=== PATIENT | male | born 1965 | race Caucasian/White ===

== ENCOUNTER 2021-12-07 10:43 | Emergency (ER) | payer SELFPAY ==
[~2021-12-07] VITALS: Ht 177.8 cm; Wt 91.0 kg
[~2021-12-07 10:43] MED LIST: ACHD5005 PO; LEVO750T9 PO
[2021-12-07 10:52] VITALS: BP 137/89
--- NOTE | 2021-12-07 11:16 | ED General ---
General Chief Complaint: Bite-Animal/Human/Insect Stated Complaint: R FOOT SPIDER BITE Nursing Triage Note: The patient states that this spider bite occured a couple days ago and that he could not get comfortable enough last night to sleep as the bite was bothering him. The patient says he has never had a spider bite and did not see the spider but believes it was a spider because he felt something move in his boot when the pain occured initially. Source of Information: Patient Exam Limitations: No Limitations History of Present Illness Date Seen by Provider: December 07, 2021 Time Seen by Provider: 10:58 Initial Comments This is a well-appearing 55-year-old male who presented to the ER with complaints of pain in his right foot. States that this started a couple days ago and thought he may have been bit by spider or another insect. He did not see a spider or insect however he thought he saw a small puncture area on the sole of his foot just proximal to the first great toe. Describes as "hurt" pain Is intermittent and present only when he walks or put pressure on his foot. Pain with ambulation is 7/10, and with rest 3/10. Has not taken anything for pain prior to arrival. Denies fever, chills, cough, nausea, vomiting, abdominal pain, rashes. Allergies and Home Medications Allergies Coded Allergies: No Known Drug Allergies (Unverified , 05/30/16) Patient Home Medication List Home Medication List Reviewed: Yes Hydrocodone Bit/Acetaminophen (Lortab 5 Mg Tablet) 1 Each Tablet, 1 EACH PO Q6H PRN for PAIN Prescribed by: WILMER LEBRON on 05/30/16 0235 Levofloxacin (Levaquin) 750 Mg Tablet, 750 MG PO DAILY Prescribed by: WILMER LEBRON on 05/30/16 0235 Review of Systems Review of Systems Constitutional: no symptoms reported EENTM: no symptoms reported Respiratory: no symptoms reported Cardiovascular: no symptoms reported Gastrointestinal: no symptoms reported Musculoskeletal: see HPI Skin: see HPI Psychiatric/Neurological: No Symptoms Reported Hematologic/Lymphatic: No Symptoms Reported Immunological/Allergic: no symptoms reported Past Qtxvhgw-Howaye-Rxvaos Hx Patient Social History Tobacco Use?: Yes Smoking Status: Current Everyday Smoker Smokeless Tobacco Frequency: Never a User Substance use?: No Alcohol Use?: No Pt feels they are or have been: No Immunizations Up To Date 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 oz. 81.211138dp; 28.00 BMI Method:Stated General Appearance: No Apparent Distress, WD/WN Eyes: Bilateral Eye Normal Inspection, Bilateral Eye EOMI HEENT: PERRL/EOMI, Normal ENT Inspection, Moist Mucous Membranes Neck: Full Range of Motion, Normal Inspection Respiratory: Lungs Clear, Normal Breath Sounds, No Accessory Muscle Use, No Respiratory Distress Cardiovascular: Regular Rate, Rhythm, No Murmur Extremity: Normal Capillary Refill, Normal Inspection, Normal Range of Motion Neurologic/Psychiatric: Alert, Oriented x3, No Motor/Sensory Deficits, Normal Mood/Affect Skin: Normal Color, Warm/Dry Comments Right foot: Minimal swelling over first volar metatarsal. No obvious open area's or foreign bodies appreciated. Pain on palpation of first metatarsal. Progress/Results/Core Measures Suspected Sepsis SIRS Temperature: Pulse: 89 Respiratory Rate: 19 Blood Pressure 137 /89 Mean: 105 Results/Orders My Orders Orders - URIEL HUNG APRN Foot, Right, 3 View (12/07/21 11:05) Vital Signs/I&O 12/07/21 10:52 Temp 37.1 Pulse 89 Resp 19 B/P (MAP) 137/89 (105) O2 Delivery Room Air Capillary Refill : Less Than 3 Seconds Blood Pressure Mean: 105 Progress Note : Progress Note Patient examined and in no acute distress. Images negative for acute fractures, appears to have possible bone spur vs osteoarthritis. Radiographs pending radiology review. Patient declines to wait for final read. Will call if radiology reads any acute fractures. He declined off loading boot or Ibuprofen/Toradol. Discharge POC reviewed and he is agreeable with plan. Diagnostic Imaging Diagonstic Imaging: Xray Comments [facility] [place], [place] NAME: BONNY AWAD Stephanie MED REC#: [id number] PT STATUS: DEP ER : 1965 PHYSICIAN: URIEL HUNG APRN ADMIT DATE: 12/07/21/ER Draft Date of Exam:12/07/21 FOOT, RIGHT, 3 VIEW INDICATION: Spider bites. FINDINGS: No retained opaque foreign body. No bony destruction. No abnormal periosteal reaction. No soft tissue gas. IMPRESSION: No acute bony abnormality, foreign body or gas. Dictated on workstation # [id number] Dict: 12/07/21 1127 Trans: 12/07/21 1151 [id number] Interpreted by: ARASH ROSA Electronically signed by: Departure Impression Primary Impression: Bone spur of toe of right foot Disposition: HOME, SELF-CARE Condition: Stable Departure-Patient Inst. Decision time for Depature: 11:28 Referrals: NO,LOCAL PHYSICIAN (PCP/Family) Primary Care Physician Patient Instructions: Acute Pain, Adult (DC) Add. Discharge Instructions: Plan: 1. Discharge home. 2. Follow up with Ortho provider of choice next week. May try more supportive shoes. 3. May take Ibuprofen or Ibuprofen as needed for pain per package. May take Ibuprofen 600mg every 6 hours as needed, take with food. 4. Apply ice 20 minutes at a time 4-6x per day. 5. Return to ER for any new, worsening, or concerning symptoms. All discharge instructions reviewed with patient and/or family. Voiced understanding. URIEL HUNG CYTOLOGIST December 07, 2021 11:16
--- NOTE | 2021-12-07 11:52 | Diagnostic Imaging Report ---
INDICATION: Spider bites. FINDINGS: No retained opaque foreign body. No bony destruction. No abnormal periosteal reaction. No soft tissue gas. IMPRESSION: No acute bony abnormality, foreign body or gas. Dictated by: Dictated on workstation # [id number]
== END 2021-12-07 11:50 | disposition home or self-care (01) ==
LOC: EDUNIT# 10:43 → ER 10:45
DX: M77.8 Other enthesopathies, not elsewhere classified (principal); F17.200 Nicotine dependence, unspecified, uncomplicated
CPT/HCPCS: 73630

== ENCOUNTER 2022-12-04 12:30 | Emergency (ER) | payer SELFPAY ==
[~2022-12-04] VITALS: Ht 180 cm; Wt 90.0 kg
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
--- NOTE | 2022-12-04 13:05 | Diagnostic Imaging Report ---
FOREARM, LEFT, 2 VIEWS INDICATION: Left forearm pain COMPARISON: None available. TECHNIQUE: 2 views left forearm FINDINGS: There is an acute simple fracture involving the distal one 3rd of the ulnar diaphysis that has 1 cm dorsal displacement. No acute fracture within the radius. The alignment of the elbow is normal. IMPRESSION: Acute displaced fracture in the distal ulnar shaft. Dictated by: Dictated on workstation # [id number]
[2022-12-04 13:28] VITALS: BP 137/87
== END 2022-12-04 13:28 | disposition home or self-care (01) ==
LOC: EDUNIT# 12:30 → ER 12:34
DX: S52.602A Unspecified fracture of lower end of left ulna, initial encounter for closed fracture (principal); F17.210 Nicotine dependence, cigarettes, uncomplicated; V47.9XXA Unspecified car occupant injured in collision with fixed or stationary object in traffic accident, initial encounter; Y92.410 Unspecified street and highway as the place of occurrence of the external cause
CPT/HCPCS: 29125; 73090

== ENCOUNTER → 2022-12-08 | Outpatient (CLI) | payer OTHER | LOC: ORTHO 14:17 | PROVIDERS: ATTEND Orthopaedic Surgery | DX: S52.209D Unspecified fracture of shaft of unspecified ulna, subsequent encounter for closed fracture with routine healing (principal); X58.XXXD Exposure to other specified factors, subsequent encounter | CPT/HCPCS: 99203 ==

== ENCOUNTER → 2023-01-24 | Outpatient (CLI) | payer OTHER ==
--- NOTE | 2023-01-24 17:46 | Diagnostic Imaging Report ---
Indication: Left forearm fracture, follow-up. Time of Exam: 8:52 AM Correlation is made with prior forearm radiographs from 12/04/2022. There is a healing fracture of the distal ulna. There has been development of a callus formation but fracture line does remain clearly visible. Overall alignment is near-anatomic. The radius is intact. Alignment at the elbow and wrist is normal. IMPRESSION: Healing distal ulna fracture, as described. The fracture line does remain partly visible. Dictated by: Dictated on workstation # [id number]
== END ==
LOC: ORTHO 08:46
PROVIDERS: ATTEND Orthopaedic Surgery
DX: S52.222D Displaced transverse fracture of shaft of left ulna, subsequent encounter for closed fracture with routine healing (principal); X58.XXXD Exposure to other specified factors, subsequent encounter
CPT/HCPCS: 73090; G0463; 99213

== ENCOUNTER → 2023-02-28 | Outpatient (CLI) | payer OTHER ==
--- NOTE | 2023-02-28 11:43 | Diagnostic Imaging Report ---
INDICATION: Fracture followup, followup orthopedic assessment. COMPARISON: 01/24/2023 TECHNIQUE: 3 radiographs of the left form dated 02/28/2023. FINDINGS: Healing distal ulnar shaft fracture is again identified. Minimal posterior displacement and lateral displacement is identified and stable from the prior examination. Increasing periosteal reaction callus formation is noted, though significant persisting fracture lucency remains. No new fracture or dislocation. No destructive osseous process. No suspicious radiopaque foreign body. IMPRESSION: Continued interval healing of previously noted distal ulnar shaft fracture with alignment remaining stable. However, significant persisting fracture lucency remains. No new acute osseous abnormality. Dictated by: Dictated on workstation # [id number]
== END ==
LOC: ORTHO 07:58
PROVIDERS: ATTEND Orthopaedic Surgery
DX: S52.222D Displaced transverse fracture of shaft of left ulna, subsequent encounter for closed fracture with routine healing (principal); X58.XXXD Exposure to other specified factors, subsequent encounter
CPT/HCPCS: 73090; G0463; 99213